=== PATIENT | male | born 1965 | race Caucasian/White ===

== ENCOUNTER 2017-01-15 03:22 | Observation (INO) | payer OTHER ==
[2017-01-15 03:22] VITALS: BMI 25.8
[2017-01-15 03:45] VITALS: BP 126/70; PULSE 87; RESP 15; TEMP 97.4; O2SAT 98
[2017-01-15] MEDS ORDERED: Sodium Chloride 0.9% 1,000 ML IV STA (04:16)
--- NOTE | 2017-01-15 04:23 | ED PDOC ---
HPI: Male Pain Time Seen by Provider: 01/15/17 03:47 Chief Complaint (Nursing): Male Genitourinary Chief Complaint (Provider): Left lower back pain History Per: Patient Additional Complaint(s): 51 YO M w/ h/o kidney stones presents to the ER w/ left lower "kidney pain"". Patient states he has a history of kindey stones which act up when he is fasting for his adventism. Patient did not eat or drink anything all day untill the evening, when he broke his fast. This eppisode of kidney stone started on when he went to [facility] and was found to have a 4 mm stone. He was discharged with pain medication and minal max at that time he was asymptomatic untill 12/24/16 when he started having pain again. At that time he went to [facility] he was given pain meds there and hydrated. Since then he has not been symptomatic untill last night after he was fasting all day. He took a flomax and drank two liters off water but did not relieve his pain so he came in. He denies any nausea/vomiting chiills. He describes the pain at a 8/10, the pain does not radiate anywhere is localized at he left kidney region. 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 PMH: Back pain, kidney stones, ADHD PSH: Apendicitis, Left inguinal hernia repair Allergy: NKDA Medicine: Ibuprofen, Flomax, Adderal XR F/H:Father has a h/o kidney stones S/H: Lives with his family, denies alcohol use or smoking. Against Medical Advice - AMA Patient Left Against Medical Advice: The patient declines admission to the hospital and wishes to leave the Emergency Department. This action is against my medical advice. This decision was made with informed refusal. The patient was told that admission to the hospital is necessary. Explanation of the reasons why were discussed. The risks of leaving were explained to the patient and include, but are not limited to, worsening of known or currently unknown conditions, permanent disability and from undiagnosed or untreated conditions. The patient has the capacity to make this informed decision and understands my explanation of the current medical problem and risks of leaving. The patient voluntarily accepts these risks and signed an AMA form documenting our conversation. The patient was given the opportunity to ask questions and reconsider. The patient was encouraged to return to the Emergency Department at any time for further care. 01/15/17 06:12 PAtient was given tordol for pain relief and given IV fluids, he was advised importance of getting CT scan done and will reassess after that for proper treatment. Patient is requesting morphine , and when he didn't receive morphine he states that he wants to sign out AMA. He has been advised that refusing treatment can lead to severe disability, , ureter injury, hydronephrosis, pyelonephritis. 01/15/17 06:15 Past Medical History Vital Signs: Last Vital Signs Temp 97.4 F L 01/15/17 03:30 Pulse 87 01/15/17 03:30 Resp 15 01/15/17 03:30 BP 126/70 01/15/17 03:30 Pulse Ox 98 01/15/17 03:30 - Medical History PMH: Back Problems, Hiatal Hernia Denies: Arthritis, Chronic Kidney Disease - Surgical History Surgical History: Appendectomy - Family History Family History: States: Unknown Family Hx - Immunization History Hx Tetanus Toxoid Vaccination: No Hx Influenza Vaccination: No Hx Pneumococcal Vaccination: No - Home Medications Home Medications: Ambulatory Orders Medication Instructions Recorded Dextroamphetamine/Amphetamine 30 mg PO DAILY 12/20/16 [Adderall Xr 30 mg Capsule] Tamsulosin [Flomax] 0.4 mg PO DAILY #30 cap 12/20/16 - Allergies Allergies/Adverse Reactions: Allergies Allergy/AdvReac Type Severity Reaction Status Date / Time No Known Allergies Allergy Verified 12/20/16 16:41 Review of Systems ROS Statement: Except As Marked, All Systems Reviewed And Found Negative Physical Exam - Physical Exam Appears: Positive for: No Acute Distress Skin: Positive for: Normal Color Eye Exam: Positive for: Normal appearance Cardiovascular/Chest: Positive for: Regular Rate, Rhythm. Negative for: Murmur Respiratory: Positive for: Normal Breath Sounds. Negative for: Crackles, Wheezing Back: Positive for: L CVA Tenderness Neurologic/Psych: Positive for: Alert, branch administrator II-XII, Oriented. Negative for: Motor/Sensory Deficits - Laboratory Results Result Diagrams: 01/15/17 04:40 01/15/17 04:40 - ECG O2 Sat by Pulse Oximetry: 98 - Progress ED Course And Treament: 51 YO M w/ h/o recurrent kidney stones presents to the ER for left lower back pain 1) Left lower flank pain most likely secondary to kidney stone - CBC, CMP - IV hydration - Toradol 30 mg - Urine Culture - U/A - Medical Decision Making Medical Decision Makin YO M w/ h/o recurrent kidney stones presents to the ER for left lower back pain 1) Left lower flank pain most likely secondary to kidney stone - CBC, CMP - IV hydration - Toradol 30 mg - Urine Culture - U/A: Urine RBC 116, 3+ Urine blood, 1+ Urine protein * Pt states that the Tordol is not providing relief and is requesting Morphine. He has been advised that a CT scan will be done first to determine the size of the stone and then will reassess. Patient has refused the CT scan, and is signing out AMA. ED OBSERVATION Date of observation admission: 01/15/17 Time of observation admission: 04:21 - Observation admission statement Patient is being placed in observation because:: Reccurent admisions for kidney stone which has not passed. Currently giving IV hydration and pain medication. Possible need of U/S in the morning if stone does not pass. - Goals of Observation Goals of observation are:: Goal: IS to controll the pain, give IV hydration and do U/S if stone does not pass. - Progress Note Progress Note: 01/15/17 04:23 Currently patient is being started on IV hydration and pain medication to help pass the stone. If not able to pass will order U/S in the morning. Disposition - Clinical Impression Clinical Impression: Abdominal pain - Disposition Disposition: Against Medical Advice Disposition Time: 06:10 Condition: GUARDED Instructions: Against Medical Advice (ED)
[2017-01-15 04:51] LABS: CHLORIDE 108 mmol/L (98-107); POTASSIUM 3.6 MMOL/L (3.6-5.0); RBC URINE 3033 /hpf (0-3); SODIUM 139 mmol/l (132-148); URINE BACTERIA MOD (<OCC); URINE BILIRUBIN NEGATIVE (NEGATIVE); URINE BLOOD LARGE (NEGATIVE); URINE COLOR YELLOW (YELLOW); URINE GLUCOSE (UA) NEG (Normal); URINE KETONE NEGATIVE (NEGATIVE); URINE LEUKOCYTE ESTERASE NEG Leu/uL (Negative); URINE PROTEIN 30 mg/dL (NEGATIVE); URINE UROBILINOGEN 0.2-1.0 mg/dL (0.2-1.0); WBC URINE 9 /hpf (0-5)
[2017-01-15 04:53] LABS: BILIRUBIN,TOTAL 0.4 mg/dl (0.2-1.3); CARBON DIOXIDE 25 mmol/L (22-30); GFR AFRICAN-AMERICAN > 60
[2017-01-15 04:54] LABS: ALB/GLOB RATIO 1.2 (1.0-2.1); ALKALINE PHOSPHATASE 80 U/L (38-126); ALT/SGPT 27 U/L (21-72); AST/SGOT 23 U/L (17-59); BLOOD UREA NITROGEN 20 mg/dl (9-20); CALCIUM 8.7 mg/dL (8.4-10.2); GLUCOSE,RANDOM 99 mg/dL (75-110); TOTAL PROTEIN 7.6 G/DL (6.3-8.2)
[2017-01-15 05:46] LABS: BASO # 0.1 K/uL (0.0-0.2); BASO % 0.6 % (0.0-2.0); EOS # 0.4 K/uL (0.0-0.7); EOS % 3.9 % (0.0-4.0); HEMATOCRIT 42.5 % (35.0-51.0); LYMPH # 2.5 K/uL (1.0-4.3); LYMPH % 27.1 % (20.0-40.0); MEAN CELL VOLUME 88.4 fl (80.0-94.0); MEAN CORPUSCULAR HEMOGLOBIN 29.1 pg (27.0-31.0); MEAN PLATELET VOLUME 7.7 fl (7.2-11.7); MONO # 0.6 K/uL (0.0-0.8); MONO % 6.1 % (0.0-10.0); NEUT # 5.8 K/uL (1.8-7.0); NEUT % 62.3 % (50.0-75.0); NRBC % 0.2 % (0.0-0.0); RED CELL DISTRIBUTION WIDTH 15.1 % (11.5-14.5); WHITE BLOOD COUNT 9.4 K/uL (4.8-10.8)
== END 2017-01-15 06:04 | disposition home or self-care (01) ==
LOC: H.ER 03:22 → H.EROBSV 04:16
PROVIDERS: ADMIT Emergency Medicine; ATTEND Emergency Medicine
DX: N20.0 Calculus of kidney (principal); F90.9 Attention-deficit hyperactivity disorder, unspecified type